=== PATIENT | male | born 1965 | race Caucasian/White ===

== ENCOUNTER 2017-10-23 09:09 | Day surgery (SDC) | payer BC ==
[2017-10-23] VITALS (8 sets, daily range): BP systolic 101–118; BP diastolic 62–75
[~2017-10-23] VITALS: Ht 175.3 cm; Wt 72.6 kg
--- NOTE | 2017-10-23 06:46 | Anethesia Preoperative Eval ---
Anesthesia Pre-op PMH/ROS General Date of Evaluation: Oct 23, 2017 Time of Evaluation: 06:45 Anesthesiologist: swetha ASA Score: ASA 2 Mallampati Score Class I : Soft palate, uvula, fauces, pillars visible Class II: Soft palate, uvula, fauces visible Class III: Soft palate, base of uvula visible Class IV: Only hard plate visible Mallampati Classification: Class II Surgeon: oriana Diagnosis: colon screening Surgical Procedure: colonoscopy Anesthesia History: none Social History: smoking - nonsmoker Family History: no anesthesia problems Allergies: Coded Allergies: No Known Allergies (Unverified , 10/22/17) Medications: see eMAR Past Medical History Gastrointestinal/Genitourinary: Reports: other - hepatitis a Anesthesia Pre-op Phys. Exam Physician Exam Last Vital Signs Date Time Temp Pulse Resp B/P (MAP) Pulse Ox O2 Delivery O2 Flow Rate FiO2 10/23/17 09:47 Room Air 10/23/17 09:42 97.6 52 18 118/73 (88) 97.6 Constitutional: NAD Neurologic: CN 2-12 intact Cardiovascular: RRR Respiratory: CTA Gastrointestinal: S/NT/ND Airway Exam Mallampati Score: Class II MO: full Neck: supple TMD: 2fb ROM: full Teeth: intact Anesthesia Pre-op A/P Risk Assessment & Plan Assessment: asa2 Plan: mac Status Change Before Surgery: No Pre-Antibiotics Drug: Uyen Pickett MD Oct 23, 2017 06:46
[~2017-10-23 09:09] MED LIST: Atropine Inj 1mg/10ml Syr IV PRN; DiphenhydrAMINE 50mg/ml Inj IVP PRN; LR 1000ml 1,000 ML IVLG SCH; Labetalol 5mg/ml 20ml vial IV PRN; Midazolam 2mg/2ml Inj IVP PRN; fentaNYL 100 mcg/2 mL IV PRN
[2017-10-23] MEDS ORDERED: FLONASE ALLERG9.9 ML NS (09:44)
[2017-10-23] MEDS ORDERED: Propofol 200mg/20ml IV ONE (10:30)
[2017-10-23] MEDS ORDERED: LR 1000ml ONE (10:30)
[2017-10-23] MEDS ORDERED: Lidocaine 1% MPF 10mg/ml 5ml ONE (10:30)
--- NOTE | 2017-10-23 10:30 | Short Stay Surgery H&P ---
History of Present Illness History of Present Illness Chief Complaint Screening colonoscopy at age 52 HPI Jose Cruz Carrillo is a 52 year old male who was admitted on for Colon Screening Patient History Allergies: Coded Allergies: No Known Allergies (Unverified , 10/22/17) Medication History Scheduled Fluticasone Propionate (Flonase Allergy Relief), 9.9 ML NS DAILY, (Reported) Review of Systems Cardiovascular: Reports: no symptoms Respiratory: Reports: no symptoms Skeletal: Reports: no symptoms Gastrointestinal: Reports: no symptoms Genitourinary: Reports: no symptoms Neurologic: Reports: no symptoms Endocrine: Reports: no symptoms Hematologic: Reports: no symptoms Physical Exam Vital Signs Last Vital Signs Date Time Temp Pulse Resp B/P (MAP) Pulse Ox O2 Delivery O2 Flow Rate FiO2 10/23/17 09:47 Room Air 10/23/17 09:42 97.6 52 18 118/73 (88) 97.6 Skin: normal HENT: normal Heart: normal Lungs: normal Abdomen: normal Extremities: normal Genitourinary: normal Plan Plan of Care Total colonoscopy Preop Interventions None. Summary of Findings See the reports Attestation Are the patient's medical conditions optimized for surgery? Attestation Response: yes Idalia Cody MD Oct 23, 2017 10:30
--- NOTE | 2017-10-23 10:31 | Pre-Procedure Note/Attestation ---
Pre-Procedure Note/Attestation Complete Prior to Procedure Planned Procedure: left Procedure Narrative: Examination of the colon via endoscopy for colon cancer screening Indications for Procedure Pre-Operative Diagnosis: R/O colon polyps/CA Attestation I attest that I discussed the nature of the procedure; its benefits; risks and complications; and alternatives (and the risks and benefits of such alternatives ), prior to the procedure, with the patient (or the patient's legal construction representative). I attest that, if there was a reasonable possibility of needing a blood transfusion, the patient (or the patient's legal construction representative) was given the [facility] standardized written summary, pursuant to the [place] Blood Safety Act ([place] Health and Safety Code # 1645, as amended). I attest that I re-evaluated the patient just prior to the surgery and that there has been no change in the patient's H&P, except as documented below: Idalia Cody MD Oct 23, 2017 10:31
--- NOTE | 2017-10-23 10:58 | Endoscopy Procedure Note ---
Endoscopy Procedure Note General Indication for Procedure: Screening colonoscopy Procedures Performed: colonoscopy - Completely normal total colonoscopy. Specimen: none Pt Tolerated Procedure Well: Yes Estimated Blood Loss: none Anesthesia Anesthesiologist: Dr. Pryor Anesthesia: moderate sedation Medications Medication Given: see anesthesia record Inserted Devices Implant(s) used?: No Quality Quality of Bowel Preparation: Excellent Did scope reach the cecum?: Yes Was there any complications?: No GI Core Measures 50 yrs or older w/o bx or poly: Yes 10yrs. F/U not recommended: Yes 10 yrs. F/U needed: Yes 18 years or older w/prev. colo: No <3yrs. since last colonoscopy: No Med reason:<3 yrs.: System Reason:<3 yrs.: Idalia Cody MD Oct 23, 2017 10:57
--- NOTE | 2017-10-23 10:58 | Discharge Instructions ---
Discharge Instructions Discharge Instructions Follow up with: Visit the doctor next week, call first For Congestive Heart Failure Reminder Report to your physician any weight gain of 5 pounds or more in one week. Idalia Cody MD Oct 23, 2017 10:58
--- NOTE | 2017-10-23 11:25 | Immediate Post-Op Evaluation ---
Immediate Post-Op Evalulation Immediate Post-Op Evalulation Procedure: colonoscopy Date of Evaluation: Oct 23, 2017 Time of Evaluation: 11:14 IV Fluids: 200ml lr Blood Products: none Estimated Blood Loss: neglgible Blood Pressure Systolic: 106 Blood Pressure Diastolic: 62 Pulse Rate: 54 Respiratory Rate: 18 O2 Sat by Pulse Oximetry: 100 Temperature (Fahrenheit): 98.9 Pain Score (1-10): 0 Nausea: No Vomiting: No Complications none Patient Status: awake, reacts, patent Hydration Status: adequate Drug: Uyen Pickett MD Oct 23, 2017 11:25
--- NOTE | 2017-10-23 14:48 | 48 Hour Post Anesthesia Eval ---
Post Anesthesia Evaluation Procedure: colonoscopy Date of Evaluation: Oct 23, 2017 Time of Evaluation: 11:14 Blood Pressure Systolic: 106 0: 62 Pulse Rate: 54 Respiratory Rate: 18 Temperature (Fahrenheit): 98.9 O2 Sat by Pulse Oximetry: 100 Airway: patent Nausea: No Vomiting: No Pain Intensity: 0 Hydration Status: adequate Cardiopulmonary Status: stable Mental Status/LOC: patient returned to baseline Post-Anesthesia Complications: none Follow-up care needed: N/A Uyen Woodruff MD Oct 23, 2017 14:48
--- NOTE | 2017-10-23 19:30 | Operative Note - Dictated ---
DATE OF OPERATION: 10/23/2017 SURGEON: Idalia Cody M.D. PROCEDURE: Total colonoscopy. PREOPERATIVE DIAGNOSIS: Screening colonoscopy. POSTOPERATIVE DIAGNOSIS: Completely normal total colonoscopy. REFERRING PHYSICIAN: Dr. Michelle Harvey. ANESTHESIOLOGIST: Dr. Pryor. INSTRUMENT: GIF Olympus video colonoscope. DESCRIPTION OF PROCEDURE: The patient after arriving in endoscopy unit, was told about risks and benefits of the procedure, which he accepted and signed the informed consent. At this time, the scope was advanced through the anal area, which did not reveal any abnormalities and retroflexion maneuver was applied in the rectum, which also did not reveal any major pathology such as colitis, hemorrhoids, polyps, tumors, etc. At this point, the scope was advanced through rather redundant left colon reaching to the splenic flexure. From there, it was guided to transverse colon, hepatic flexure, and finally reached the base of the cecum. All these areas remained to be completely normal without any pathological findings such as tumors or polyps. At this point within 7 minutes, the scope was gradually pulled out and there were no other findings as mentioned. The patient's cleanup was excellent. The patient tolerated the procedure well and left the endoscopy room in a good condition. Idalia Cody M.D. DR: LINDA JOB#: [id number] CC:
== END 2017-10-23 12:10 | disposition home or self-care (01) ==
LOC: GAS 09:09
DX: Z12.11 Encounter for screening for malignant neoplasm of colon (principal); Z86.19 Personal history of other infectious and parasitic diseases
CPT/HCPCS: 45378; J2704; J7120; 94003; 94150